=== PATIENT | female | born 2000 | race American Indian/Alaskan Native ===

== ENCOUNTER 2019-10-05 10:08 | Emergency (ER) | payer OTHER ==
[2019-10-05 10:15] VITALS: BP 111/77
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
== END 2019-10-05 10:45 | disposition home or self-care (01) ==
LOC: ED 10:08
DX: M79.10 Myalgia, unspecified site (principal); V43.52XA Car driver injured in collision with other type car in traffic accident, initial encounter; Y93.89 Activity, other specified; Y92.410 Unspecified street and highway as the place of occurrence of the external cause; Y99.8 Other external cause status

== ENCOUNTER 2021-12-04 14:11 | Emergency (ER) | payer MEDICAID, OTHER ==
[2021-12-04 14:25] VITALS: BP 108/74
--- NOTE | 2021-12-04 14:59 | Emergency Department Report ---
ED HPI - General Chief complaint: Vaginal Bleeding Stated complaint: VAGINAL BLEEDING WITH Time Seen by Provider: 12/04/21 14:27 Source: patient Mode of arrival: Ambulatory Limitations: No Limitations - History of Present Illness Initial comments: 19-year-old female presents to the ER today with complaints of being and vaginal bleeding. Patient states that she is about 8 weeks . She said that the bleeding has been intermittent spotting. She did have to wear 1 pad today. She reports this was a mild intermittent abdominal cramping. She denies any abnormal vaginal discharge or UTI symptoms. She states that she had an ultrasound at 5 weeks, which showed IUP. She is G1, P0 Ab0. She said her [facility] [facility] is in [facility]. She reports no additional symptoms at this time. Complaint: vaginal bleeding -: days(s) (1) - Related Data Previous Rx's Medication Instructions Recorded Last Taken Type Permethrin 5% [Acticin 5% CREAM] 1 applicatio TP ONCE #60 g 11/24/13 Unknown Rx Ketorolac [Toradol] 10 mg PO Q6H PRN #14 tablet 10/05/19 Unknown Rx methOCARBAMOL [Robaxin TAB] 750 mg PO Q8H PRN #15 tablet 10/05/19 Unknown Rx Allergies Allergy/AdvReac Type Severity Reaction Status Date / Time No Known Allergies Allergy Unverified 11/24/13 08:44 ED Review of Systems ROS: Stated complaint: VAGINAL BLEEDING WITH Other details as noted in HPI Comment: All other systems reviewed and negative Constitutional: denies: chills, fever Eyes: denies: eye pain, eye discharge, vision change ENT: denies: ear pain, throat pain, dental pain, hearing loss, epistaxis, congestion Respiratory: denies: cough, shortness of breath, wheezing Gastrointestinal: abdominal pain. denies: nausea, diarrhea, constipation, hematemesis, melena, hematochezia Genitourinary: other (Abnormal vaginal bleeding). denies: urgency, dysuria, frequency, hematuria, discharge, abnormal menses, dyspareunia Musculoskeletal: denies: back pain, joint swelling, arthralgia Skin: denies: rash, lesions, change in color, change in hair/nails, pruritus Neurological: denies: headache, weakness, numbness, paresthesias, confusion, abnormal gait, vertigo Psychiatric: denies: anxiety, depression, auditory hallucinations, visual hallucinations, homicidal thoughts, suicidal thoughts Hematological/Lymphatic: denies: easy bleeding, easy bruising, swollen glands ED Past Medical Hx - Social History Smoking Status: Never Smoker Substance Use Type: None - Medications Home Medications: Home Medications Medication Instructions Recorded Confirmed Last Taken Type Permethrin 5% [Acticin 5% CREAM] 1 applicatio TP ONCE #60 g 11/24/13 Unknown Rx Ketorolac [Toradol] 10 mg PO Q6H PRN #14 tablet 10/05/19 Unknown Rx methOCARBAMOL [Robaxin TAB] 750 mg PO Q8H PRN #15 tablet 10/05/19 Unknown Rx ED Physical Exam - General Limitations: No Limitations General appearance: alert, in no apparent distress - Head Head exam: Present: atraumatic, normocephalic, normal inspection - Respiratory Respiratory exam: Present: normal lung sounds bilaterally. Absent: respiratory distress, wheezes, rales, rhonchi - Cardiovascular Cardiovascular Exam: Present: regular rate, normal rhythm, normal heart sounds - GI/Abdominal GI/Abdominal exam: Present: soft. Absent: distended, tenderness, guarding, rebound - Neurological Exam Neurological exam: Present: alert, oriented X3, CN II-XII intact, normal gait - Psychiatric Psychiatric exam: Present: normal affect, normal mood - Skin Skin exam: Present: intact ED Course Vital Signs 12/04/21 14:23 Temperature 99.6 F Pulse Rate 68 Respiratory 20 Rate Blood Pressure 108/74 [Right] O2 Sat by Pulse 100 Oximetry ED Medical Decision Making - Lab Data Result diagrams: 12/04/21 15:14 12/04/21 15:14 - Radiology Data Radiology results: report reviewed Patient: PINKY ONEIL MR#: [id number] : 2000 Acct:[id number] Age/Sex: 21 / F ADM Date: 12/04/21 Loc: ED Attending Dr: Ordering Physician: GROVER OSWALD Date of Service: 12/04/21 Procedure(s): US OB transvaginal Accession Number(s): [id number] cc: GROVER OSWALD OB TRANSVAGINAL INDICATION / CLINICAL INFORMATION: 8 weeks preg/vag bleeding. COMPARISON: None available. FINDINGS: The uterus measures 9.2 x 4.7 x 6.3 cm. The endometrial stripe measures approximately 2.6 cm AP. There is marked heterogeneity of the endometrium/endometrial cavity. There is a small crenated intrauterine fluid collection measuring 6 weeks 3 days. I do not identify a yolk sac, pole or cardiac activity. The right ovary measures 3.7 x 1.9 x 1.8 cm and the left ovary 2.9 x 1.6 x 1.7 cm. There is normal blood flow to both ovaries on Doppler exam. There is trace free fluid in the cul-de-sac. I do not identify an extraovarian mass. IMPRESSION: Heterogeneously thickened endometrium containing a small crenated fluid collection. I do not identify a normal intrauterine . The findings may be related to blood products. Molar is considered less likely. Depending on clinical findings, serial beta hCG measurements and/or sonographic follow-up in 7-10 days may be helpful in further evaluation. Signer Name: Daren Coello MD Signed: 12/04/2021 4:28 PM Workstation Name: [id number] Transcribed By: RT Dictated By: Daren Coello MD Electronically Authenticated By: Daren Coello MD Signed Date/Time: 12/04/211627 DD/ 22 TD/TT: - Medical Decision Making Labs reviewed --CBC and CMP unremarkable. hCG quant [id number]. OB ultrasound shows IMPRESSION: Heterogeneously thickened endometrium containing a small crenated fluid collection. I do not identify a normal intrauterine . The findings may be related to blood products. Molar is considered less likely. Depending on clinical findings, serial beta hCG measurements and/or sonographic follow-up in 7-10 days may be helpful in further evaluation. Patient is O+ therefore no indication for RhoGam at this time Patient is currently sitting comfortably in recliner. She is not in any significant distress. She is not toxic or ill-appearing. She has a soft nontender abdomen. She is neurologically intact with a normal gait. She is hemodynamically stable discussed all lab findings including ultrasound findings in detail with patient. At this time diagnosis is threatened miscarriage. She has an appointment with her OB for the of this month, but recommend that she follows up on Monday or Monday for repeat quant and ultrasound and further OB evaluation. Patient expressed understanding of all instructions and agree with plan. Patient stable at time of discharge - Differential Diagnosis Subchorionic hemorrhage, threatened miscarriage, UTI, anemia Critical care attestation.: If time is entered above; I have spent that time in minutes in the direct care of this critically ill patient, excluding procedure time. ED Disposition Clinical Impression: Threatened miscarriage Disposition: HOME / SELF CARE / HOMELESS Is pt being admited?: No Does the pt Need Aspirin: No Condition: Stable Instructions: Threatened Miscarriage, [id number] Additional Instructions: I recommend that you follow-up with your [employer] next Monday or Monday for repeat quantitative hCG and ultrasound. You can take Tylenol as needed for pain. Return to the ER if your symptoms worsens in any way. Referrals: PRIMARY CARE, [Primary Care Provider] - 3-5 Days Forms: Work/School Release Form(ED) Time of Disposition: 16:59
[2021-12-04 15:40] LABS: Basophils # (Auto) 0.1 K/mm3 (0.0-0.1); Basophils % (Auto) 0.9 % (0.0-1.8); Eosinophils # (Auto) 0.1 K/mm3 (0.0-0.4); Eosinophils % (Auto) 1.7 % (0.0-4.3); Hematocrit 38.8 % (30.3-42.9); Hemoglobin 12.7 gm/dl (10.1-14.3); Lymphocytes # (Auto) 1.7 K/mm3 (1.2-5.4); Lymphocytes % (Auto) 20.4 % (13.4-35.0); Mean Corpuscular HGB Conc 33 % (30-34); Mean Corpuscular Volume 85 fl (79-97); Monocytes # (Auto) 0.6 K/mm3 (0.0-0.8); Monocytes % (Auto) 7.9 % (0.0-7.3); Platelet Count 403 K/mm3 (140-440); Red Blood Count 4.58 M/mm3 (3.65-5.03); Red Cell Distribution Width 13.6 % (13.2-15.2)
[2021-12-04 15:42] LABS: Bacteria,Urine 1+ /HPF (Negative); Bilirubin,Urine NEG (Negative); Blood,Urine LG (Negative); Color,Urine Yellow (Yellow); Mucus,Urine FEW /HPF; Protein,Urine <15 mg/dL mg/dL (Negative); Urobilinogen,Urine < 2.0 mg/dL (<2.0)
[2021-12-04 16:11] LABS: Alanine Aminotransferase 10 units/L (7-56); Blood Urea Nitrogen 5 mg/dL (7-17); Calcium 9.6 mg/dL (8.4-10.2); Hemolysis Index 15
[2021-12-04 16:17] LABS: BUN/Creatinine Ratio 13
--- NOTE | 2021-12-04 16:32 | Ultrasound Report ---
US OB TRANSVAGINAL INDICATION / CLINICAL INFORMATION: 8 weeks preg/vag bleeding. COMPARISON: None available. FINDINGS: The uterus measures 9.2 x 4.7 x 6.3 cm. The endometrial stripe measures approximately 2.6 cm AP. Ther e is marked heterogeneity of the endometrium/endometrial cavity. There is a small crenated intrauteri ne fluid collection measuring 6 weeks 3 days. I do not identify a yolk sac, pole or cardiac act ivity. The right ovary measures 3.7 x 1.9 x 1.8 cm and the left ovary 2.9 x 1.6 x 1.7 cm. There is normal bl ood flow to both ovaries on Doppler exam. There is trace free fluid in the cul-de-sac. I do not ident judi an extraovarian mass. IMPRESSION: Heterogeneously thickened endometrium containing a small crenated fluid collection. I do not identify a normal intrauterine . The findings may be related to blood products. Molar pr egnancy is considered less likely. Depending on clinical findings, serial beta hCG measurements and/o r sonographic follow-up in 7-10 days may be helpful in further evaluation. Signer Name: Daren Coello MD Signed: 12/04/2021 4:28 PM Workstation Name: [id number]
== END 2021-12-04 17:54 | disposition home or self-care (01) ==
LOC: ED 14:11
DX: O20.0 Threatened abortion (principal); Z3A.08 8 weeks gestation of pregnancy
CPT/HCPCS: 36415; 76817; 80053; 81001; 84702; 85025; 86900; 86901; 99284